=== PATIENT | female | born 1980 | race African-American/Black ===

== ENCOUNTER 2020-09-09 12:41 | Emergency (ER) | payer OTHER ==
[2020-09-10 10:12] LABS: SARS-CoV-2 NAA Not Detected (Not Detected)
== END 2020-09-09 15:29 | disposition home or self-care (01) ==
LOC: JVIRT 12:41
DX: Z20.822 Contact with and (suspected) exposure to COVID-19 (principal)
CPT/HCPCS: C9803; G2251-GT; Q3014-GT; U0003; U0005

== ENCOUNTER 2020-10-03 10:15 | Emergency (ER) | payer OTHER ==
[2020-10-04 07:07] LABS: SARS-CoV-2 NAA Not Detected (Not Detected)
== END 2020-10-03 12:16 | disposition home or self-care (01) ==
LOC: JVIRT 10:15
DX: Z20.822 Contact with and (suspected) exposure to COVID-19 (principal)
CPT/HCPCS: C9803; G2251-GT; U0003; U0005